=== PATIENT | female | born 1965 | race African-American/Black ===

== ENCOUNTER 2018-01-07 11:42 | Inpatient (IN) ==
[2018-01-07] MEDS ORDERED: ONDANSETRON 4 MG/2 ML VIAL IV STA (13:15)
[2018-01-07 13:27] LABS: Basophils # 0.2 10*3/uL (0.0-0.2); Basophils % 0.5 % (0.0-0.8); Eosinophils % 0.1 % (0.00-10.9); Hemoglobin 9.4 GM/DL (12.0-16.0); Immature Granulocytes % 1.1 %; Immature Granulocytes Absolute 0.31 #; Lymphocytes # 2.7 10*3/uL (1.4-4.0); Lymphocytes % 9.3 % (21.3-54.2); Mean Corpuscular HGB Conc 31.3 GM/DL (32-36); Mean Corpuscular Hemoglobin 29 PG (27-34); Mean Platelet Volume 10.1 FL (9.6-12.0); Monocytes # 1.7 10*3/uL (0.11-0.8); Monocytes % 5.7 % (1.7-12.7); Neutrophils # 24.3 10*3/uL (1.4-7.4); Neutrophils % 83.3 % (38.7-73.9); Platelet Count 222 T/CUMM (130-400); Red Blood Count 3.26 MC/CUMM (3.8-5.5); Red Cell Distribution Width 19.6 % (9.3-17.3); White Blood Count 29.1 T/CUMM (4-12)
[2018-01-07] MEDS ORDERED: ONDANSETRON 4 MG/2 ML VIAL ONE (13:32)
[2018-01-07] MEDS ORDERED: SODIUM CHLORIDE 0.9% 1,000 ML IV STA (13:45)
[2018-01-07 13:46] LABS: Band Neutrophils 1 % (0-10); Eosinophils 1 % (0-10); Giant Platelets Few; Hypochromasia 1+; Lymphocytes 19 % (20-55); Ovalocytes Slight; Platelet Estimate Adequate; Segmented Neutrophils 76 % (50-85); Total Cells Counted 100
[2018-01-07 13:54] LABS: Apearance,Urine CLEAR (Clear); Bacteria,Urine Occasional /HPF (Few); Bilirubin,Urine Negative (Negative); Blood, Urine Negative (Negative); Glucose,Urine (UA) Negative (Negative); Ketones,Urine Negative (Negative); Mucus,Urine Occasional /LPF (Occasional); Nitrite,Urine Negative (Negative); Protein,Urine Negative; RBC,Urine <1 /HPF (0-4); Squamous Epithelial Cell,Urine Occasional /HPF (0-10); Urine Color Yellow (Yellow); Urine Specific Gravity 1.013 (1.001-1.035); Urine Urobilinogen < 2.0 EU/DL (0.2-1.0); WBC,Urine 1 /HPF (0-6)
[2018-01-07 13:59] LABS: Alanine Aminotransferase 32 U/L (13-56); Albumin 3.9 G/DL (3.4-5.0); Alkaline Phosphatase 215 U/L (45-117); Aspartate Amino Transferase 24 U/L (0-37); Bilirubin,Total < 0.39 MG/DL (0.2-1.0); Blood Urea Nitrogen 9 MG/DL (7-18); Calcium 9.3 MG/DL (8.5-10.1); Glucose 144 MG/DL (74-106); Osmolality,Calculated 276.7 MOS/KG (273-304); Potassium 3.5 MMOL/L (3.5-5.1); Sodium 138 MMOL/L (136-145); Total Protein 7.7 G/DL (6.4-8.3)
[2018-01-07] MEDS ORDERED: DEXAMETHASONE 10 MG/1 ML VIAL IV STA (16:30)
[2018-01-07] MEDS ORDERED: DEXAMETHASONE 10 MG/1 ML VIAL ONE (16:52)
[2018-01-07] MEDS ORDERED: ONDANSETRON 4 MG/2 ML VIAL IV PRN (17:41)
[2018-01-07] MEDS ORDERED: DEXTROSE 50% 25 GM/50 ML VIAL IV PRN (17:41)
[2018-01-07] MEDS ORDERED: ACETAMINOPHEN 325 MG TABLET PO PRN (17:41)
[2018-01-07] MEDS ORDERED: GLUCAGON 1 MG VIAL IM PRN (17:41)
[2018-01-07] MEDS: INSULIN LISPRO 100 UNIT/ML SUBCUT SCH (21:32)
[2018-01-07] MEDS: SODIUM CHLORIDE 0.9% 1,000 ML IV SCH (21:34)
[2018-01-07] MEDS: BENZONATATE 100 MG CAPSULE PO PRN (22:27)
[2018-01-08] MEDS: DEXAMETHASONE 4 MG/1 ML VIAL IV SCH ×4 (02:04→20:15)
[2018-01-08 04:37] LABS: Basophils # 0.1 10*3/uL (0.0-0.2); Basophils % 0.3 % (0.0-0.8); Hematocrit 25.9 VOL% (35.7-47.0); Hemoglobin 8.1 GM/DL (12.0-16.0); Immature Granulocytes Absolute 0.67 #; Lymphocytes # 1.4 10*3/uL (1.4-4.0); Lymphocytes % 4.2 % (21.3-54.2); Mean Corpuscular HGB Conc 31.3 GM/DL (32-36); Mean Corpuscular Hemoglobin 29 PG (27-34); Mean Corpuscular Volume 92.2 FL (87-102); Monocytes # 1.1 10*3/uL (0.11-0.8); Monocytes % 3.4 % (1.7-12.7); Neutrophils # 29.5 10*3/uL (1.4-7.4); Neutrophils % 90.1 % (38.7-73.9); Platelet Count 166 T/CUMM (130-400); Red Blood Count 2.81 MC/CUMM (3.8-5.5); Red Cell Distribution Width 19.3 % (9.3-17.3); White Blood Count 32.8 T/CUMM (4-12)
[2018-01-08 05:08] LABS: Alanine Aminotransferase 29 U/L (13-56); Albumin 3.3 G/DL (3.4-5.0); Alkaline Phosphatase 190 U/L (45-117); Aspartate Amino Transferase 16 U/L (0-37); Bilirubin,Total < 0.39 MG/DL (0.2-1.0); Blood Urea Nitrogen 10 MG/DL (7-18); Calcium 8.5 MG/DL (8.5-10.1); Glucose 143 MG/DL (74-106); Osmolality,Calculated 279.4 MOS/KG (273-304); Sodium 140 MMOL/L (136-145); Total Protein 6.7 G/DL (6.4-8.3)
[2018-01-08 05:20] LABS: Band Neutrophils 1 % (0-10); Giant Platelets Few; Hypochromasia 1+; Lymphocytes 4 % (20-55); Platelet Estimate Normal; Segmented Neutrophils 92 % (50-85); Total Cells Counted 100
[2018-01-08] MEDS ORDERED: MAGNESIUM SULF RIDER 2 GM in PREMIX 1 EACH IV ONE ×2 (07:51→16:15)
[2018-01-08] MEDS: INSULIN LISPRO 100 UNIT/ML SUBCUT SCH ×4 (08:00→20:15)
[2018-01-08] MEDS ORDERED: DEXAMETHASONE 4 MG TABLET PO SCH (09:00)
[2018-01-08] MEDS: PANTOPRAZOLE 40 MG TABLET PO SCH (09:17)
[2018-01-08] MEDS ORDERED: LORazepam 1 MG TABLET PO PRN (15:37)
[2018-01-08] MEDS ORDERED: traMADol 50 MG TABLET PO PRN (15:37)
[2018-01-08] MEDS ORDERED: CETIRIZINE 10 MG TABLET PO PRN (15:37)
[2018-01-08] MEDS: SODIUM CHLORIDE 0.9% 1,000 ML IV SCH (16:17)
[2018-01-08] MEDS: BENZONATATE 100 MG CAPSULE PO PRN (16:18)
[2018-01-08] MEDS: metFORMIN 500 MG TABLET PO SCH (17:09)
[2018-01-08] MEDS: METOPROLOL TARTRATE 50 MG TABLET PO SCH (20:15)
[2018-01-08] MEDS: GABAPENTIN 300 MG CAPSULE PO SCH (20:16)
[2018-01-09] MEDS: DEXAMETHASONE 4 MG/1 ML VIAL IV SCH (01:33)
[2018-01-09] MEDS: BENZONATATE 100 MG CAPSULE PO PRN ×3 (01:34→18:13)
[2018-01-09 05:38] LABS: Basophils % 0.1 % (0.0-0.8); Hematocrit 24.5 VOL% (35.7-47.0); Immature Granulocytes % 3.2 %; Lymphocytes # 1.6 10*3/uL (1.4-4.0); Lymphocytes % 3.5 % (21.3-54.2); Mean Corpuscular HGB Conc 32.7 GM/DL (32-36); Mean Corpuscular Hemoglobin 29 PG (27-34); Mean Corpuscular Volume 89.1 FL (87-102); Mean Platelet Volume 10.6 FL (9.6-12.0); Monocytes # 1.7 10*3/uL (0.11-0.8); Monocytes % 3.6 % (1.7-12.7); Neutrophils # 41.5 10*3/uL (1.4-7.4); Neutrophils % 89.6 % (38.7-73.9); Platelet Count 150 T/CUMM (130-400); Red Blood Count 2.75 MC/CUMM (3.8-5.5); Red Cell Distribution Width 19.6 % (9.3-17.3)
[2018-01-09 05:51] LABS: White Blood Count 46.3 T/CUMM (4-12)
[2018-01-09 06:01] LABS: Hypochromasia 1+; Lymphocytes 6 % (20-55); Platelet Estimate Normal; Segmented Neutrophils 92 % (50-85); Total Cells Counted 100
[2018-01-09 06:02] LABS: Giant Platelets Few; Ovalocytes Slight
[2018-01-09 06:09] LABS: Albumin 3.3 G/DL (3.4-5.0); Bilirubin,Total 0.6 MG/DL (0.2-1.0); Calcium 8.7 MG/DL (8.5-10.1); Osmolality,Calculated 282.4 MOS/KG (273-304); Potassium 3.9 MMOL/L (3.5-5.1); Total Protein 6.5 G/DL (6.4-8.3)
[2018-01-09] MEDS ORDERED: SODIUM CHLORIDE 0.9% 1,000 ML IV PRN (07:46)
[2018-01-09] MEDS: INSULIN LISPRO 100 UNIT/ML SUBCUT SCH ×4 (07:54→20:46)
[2018-01-09] MEDS: metFORMIN 500 MG TABLET PO SCH ×3 (10:00→18:01)
[2018-01-09] MEDS: GLIMEPIRIDE 2 MG TABLET PO SCH (10:00)
[2018-01-09] MEDS: DEXAMETHASONE 4 MG TABLET PO SCH ×3 (10:00→20:31)
[2018-01-09] MEDS: VALSARTAN 160 MG TABLET PO SCH (10:00)
[2018-01-09] MEDS: FLUTICASONE 50 MCG NASAL SPRAY 16 GM BOTTLE BOTH NARES SCH (10:00)
[2018-01-09] MEDS: amLODIPine 2.5 MG TABLET PO SCH (10:00)
[2018-01-09] MEDS: PANTOPRAZOLE 40 MG TABLET PO SCH (10:00)
[2018-01-09] MEDS: METOPROLOL TARTRATE 50 MG TABLET PO SCH (10:00)
[2018-01-09] MEDS: GABAPENTIN 300 MG CAPSULE PO SCH ×2 (10:00→20:31)
[2018-01-09] MEDS: CHOLECALCIFEROL 5,000 UNIT TABLET PO SCH (10:00)
[2018-01-09] MEDS: ATORVASTATIN 20 MG TABLET PO SCH (10:02)
[2018-01-09] MEDS: guaiFENesin/CODEINE 5 ML LIQUID PO PRN ×2 (10:10→18:13)
[2018-01-09] MEDS ORDERED: MAGNESIUM SULF RIDER 2 GM in PREMIX 1 EACH IV ONE (10:37)
[2018-01-09] MEDS: hydroCHLOROthiazide 12.5 MG CAPSULE PO SCH (11:39)
[2018-01-09] MEDS: CARVEDILOL 6.25 MG TABLET PO SCH (20:31)
[2018-01-09] MEDS: SODIUM CHLORIDE 0.9% 1,000 ML IV SCH (20:31)
[2018-01-10] MEDS: guaiFENesin/CODEINE 5 ML LIQUID PO PRN (02:03)
[2018-01-10 04:20] LABS: Basophils # 0.1 10*3/uL (0.0-0.2); Basophils % 0.2 % (0.0-0.8); Hematocrit 30.3 VOL% (35.7-47.0); Immature Granulocytes % 2.1 %; Immature Granulocytes Absolute 0.76 #; Lymphocytes # 2.2 10*3/uL (1.4-4.0); Lymphocytes % 6.2 % (21.3-54.2); Mean Corpuscular Hemoglobin 30 PG (27-34); Mean Corpuscular Volume 89.9 FL (87-102); Monocytes # 2.1 10*3/uL (0.11-0.8); Monocytes % 5.7 % (1.7-12.7); Neutrophils # 30.9 10*3/uL (1.4-7.4); Neutrophils % 85.8 % (38.7-73.9); Platelet Count 102 T/CUMM (130-400); Red Blood Count 3.37 MC/CUMM (3.8-5.5); Red Cell Distribution Width 17.7 % (9.3-17.3)
[2018-01-10 05:16] LABS: Giant Platelets Few; Hypochromasia 1+; Lymphocytes 9 % (20-55); Ovalocytes Slight; Platelet Estimate Decreased; Segmented Neutrophils 84 % (50-85); Total Cells Counted 100
[2018-01-10] MEDS ORDERED: POTASSIUM CHLORIDE 20 MEQ PACK PO SCH (09:00)
[2018-01-10] MEDS ORDERED: HEPARIN LOCK FLUSH 500 UNIT/5 ML SYRINGE IV ONE (09:32)
[2018-01-10] MEDS: INSULIN LISPRO 100 UNIT/ML SUBCUT SCH (09:36)
[2018-01-10] MEDS: PANTOPRAZOLE 40 MG TABLET PO SCH (09:37)
[2018-01-10] MEDS: CHOLECALCIFEROL 5,000 UNIT TABLET PO SCH (09:37)
[2018-01-10] MEDS: ATORVASTATIN 20 MG TABLET PO SCH (09:37)
[2018-01-10] MEDS: DEXAMETHASONE 4 MG TABLET PO SCH (09:38)
[2018-01-10] MEDS: CARVEDILOL 6.25 MG TABLET PO SCH (09:38)
[2018-01-10] MEDS: GABAPENTIN 300 MG CAPSULE PO SCH (09:38)
[2018-01-10] MEDS: amLODIPine 2.5 MG TABLET PO SCH (09:38)
[2018-01-10] MEDS: GLIMEPIRIDE 2 MG TABLET PO SCH (09:38)
[2018-01-10] MEDS: hydroCHLOROthiazide 12.5 MG CAPSULE PO SCH (09:38)
[2018-01-10] MEDS: VALSARTAN 160 MG TABLET PO SCH (09:38)
[2018-01-10 09:55] VITALS: BP 178/103
[2018-01-10] MEDS: FLUTICASONE 50 MCG NASAL SPRAY 16 GM BOTTLE BOTH NARES SCH (11:14)
== END 2018-01-10 10:15 | disposition home or self-care (01) | DRG 54 ==
LOC: N.ED 11:42 → N.EDINP 17:51 → N.4E 19:39
PROVIDERS: ADMIT Internal Medicine; ATTEND Internal Medicine